=== PATIENT | male | born 1965 | race Caucasian/White ===

== ENCOUNTER 2023-06-11 11:50 | Outpatient (CLI) | payer SELFPAY | END 2023-06-11 23:59 | disposition EMS.NT | LOC: EMS 11:50 | DX: R50.9 Fever, unspecified (principal); R00.0 Tachycardia, unspecified ==

== ENCOUNTER 2023-06-11 20:57 | Outpatient (CLI) | payer SELFPAY | END 2023-06-11 23:59 | disposition critical access hospital (66) | LOC: EMS 20:57 | DX: R45.851 Suicidal ideations (principal); R00.0 Tachycardia, unspecified | CPT/HCPCS: A0425; A0427 ==

== ENCOUNTER 2023-06-11 21:28 | Emergency (ER) | payer SELFPAY ==
--- NOTE | 2023-06-11 22:09 | ED Physician Documentation ---
PD HPI MHE - Stated complaint Stated Complaint: SI - Chief complaint Chief Complaint: MHE - History obtained from History obtained from: Patient - Additional information Additional information: HPI from patient. CADEN and HPI is also provided by EMS. Patient tells me that his of 20 years recently filed for divorce. He says this was about 3 weeks ago and he has not seen nor heard from her and knows 3 weeks. The patient resides in [place], but has been staying at the [facility] for the past several days. Per EMS report, someone had called for a welfare check for this patient and the police were reportedly at the patient's hotel room twice today. Is unclear what transpired on the first visit, but apparently/reportedly, on mamie's visit it was noted that the patient had a firearm in the hotel room with him in the open. The patient admitted to having some suicidal thoughts and thus EMS was contacted and to bring patient to the emergency department for MHE. The patient does admit to me that he was feeling depressed and having vague suicidal thoughts earlier this evening. His HPI is slightly scattered and thus I cannot ascertain whether or not he still is feeling suicidal, but he seems to be indicating that he is no longer feeling suicidal or having suicidal thoughts. Review of Systems Cardiac: reports: Reviewed and negative Respiratory: reports: Reviewed and negative GI: reports: Abdominal Swelling (by observation (patient says he does not feel his abdomen is distended)), Nausea. denies: Abdominal Pain, Vomiting Neurologic: denies: Generalized weakness, Focal weakness, Numbness, Headache Psychiatric: reports: Depressed, Suicidal. denies: Homicidal, Delusions PD PAST MEDICAL HISTORY - Past Medical History Past Medical History: No Other Past Medical History: skin cancer - Present Medications Home Medications: Ambulatory Orders Medication Instructions Recorded Confirmed No Known Home Medications 06/11/23 06/11/23 - Allergies Allergies/Adverse Reactions: Allergies Allergy/AdvReac Type Severity Reaction Status Date / Time No Known Drug Allergies Allergy Verified 06/11/23 21:34 - Social History Does the pt smoke?: No Smoking Status: Never smoker Does the pt drink ETOH?: Yes ETOH Use: Beer, Liquor Does the pt have substance abuse?: Yes Substance Use and Type: Marijuana PD ED PE NORMAL - Vitals Vital signs reviewed: Yes - General General: No acute distress, Well developed/nourished, Other (some difficulty (persistent throughout HPI/ROS) with memory, word-finding, mental focus (sometimes trails off mid-sentence)) - HEENT HEENT: PERRL, EOMI, Other (no icterus) - Cardiac Cardiac: No murmur - Respiratory Respiratory: No respiratory distress - Abdomen Abdomen: Soft - Derm Derm: Other (pale) PD ED PE EXPANDED - Cardiac Cardiac: Tachy, Regular Rhythm - Abdomen Abdomen: Distended, Other (tense but nontender ascites) - Rectal Rectal: Heme Occult Neg - QC+, Normal Tone - Derm Derm: Pale - Extremities Extremities: Pedal edema bilateral (2+ pitting), Other (right elbow abrasions and echymosis but FROM and nontender) Results - Vitals Vitals: Vital Signs - 24 hr 06/11/23 06/12/23 06/12/23 21:30 04:40 05:00 Temperature 36.5 C Heart Rate 126 H 119 H 126 H Respiratory 16 16 26 H Rate Blood Pressure 132/69 H 125/68 155/90 H O2 Saturation 97 94 95 06/12/23 06/12/23 06/12/23 05:30 06:01 06:04 Temperature Heart Rate 120 H 134 H 60 Respiratory 25 H 23 Rate Blood Pressure 111/55 L 164/109 H O2 Saturation Oxygen O2 Source Room air - Labs Labs: Microbiology 06/12/23 01:40 Occult Blood - Final Stool Laboratory Tests 06/11/23 06/11/23 06/11/23 23:11 23:14 23:14 WBC 6.1 RBC 2.66 L Hgb 5.6 L* Hct 20.2 L MCV 75.9 L MCH 21.1 L MCHC 27.7 L RDW 19.0 H Plt Count 312 MPV 10.5 Neut # (Auto) 4.2 Lymph # (Auto) 0.7 L [place] # (Auto) 1.1 H Eos # (Auto) 0.0 Baso # (Auto) 0.1 Absolute Nucleated RBC 0.00 Nucleated RBC % 0.0 Sodium 126 L Potassium 4.3 Chloride 91 L Carbon Dioxide 17 L Anion Gap 18.0 H BUN 11 Creatinine 1.1 Estimated GFR (MDRD) 69 L Glucose 105 H Calcium 8.5 Magnesium 1.8 Total Bilirubin 2.2 H AST 139 H ALT 45 Alkaline Phosphatase 126 H Ammonia Total Creatine Kinase 1959 H* Total Protein 6.4 Albumin 3.2 Globulin 3.2 Albumin/Globulin Ratio 1.0 Lipase 37 TSH 3.11 Urine Color YELLOW Urine Clarity CLEAR Urine pH 5.5 Ur Specific [place] >=1.030 H Urine Protein TRACE Urine Glucose (UA) NEGATIVE Urine Ketones NEGATIVE Urine Occult Blood NEGATIVE Urine Nitrite NEGATIVE Urine Bilirubin NEGATIVE Urine Urobilinogen 0.2 (NORMAL) Ur Leukocyte Esterase NEGATIVE Ur Microscopic Review NOT INDICATED Urine Culture Comments NOT INDICATED Salicylates < 1.5 Urine Opiates Screen POSITIVE H Ur Buprenorphine Scrn NEGATIVE Ur Oxycodone Screen NEGATIVE Urine Methadone Screen NEGATIVE Acetaminophen 10.8 Ur Barbiturates Screen NEGATIVE Ur Tricyclics Screen POSITIVE H Ur Phencyclidine Scrn NEGATIVE Ur Amphetamine Screen NEGATIVE U Methamphetamines Scrn NEGATIVE U Benzodiazepines Scrn POSITIVE H Urine Cocaine Screen NEGATIVE U Cannabinoids Screen NEGATIVE Ur Drug Screen Comment CUTOFF CONC BELOW: Ethyl Alcohol 61.9 Blood Type Blood Type Recheck Antibody Screen Crossmatch IS Only 06/11/23 06/11/23 06/12/23 23:14 23:14 05:57 WBC RBC Hgb Hct MCV MCH MCHC RDW Plt Count MPV Neut # (Auto) Lymph # (Auto) [place] # (Auto) Eos # (Auto) Baso # (Auto) Absolute Nucleated RBC Nucleated RBC % Sodium Potassium Chloride Carbon Dioxide Anion Gap BUN Creatinine Estimated GFR (MDRD) Glucose Calcium Magnesium Total Bilirubin AST ALT Alkaline Phosphatase Ammonia 82.9 H* Total Creatine Kinase Total Protein Albumin Globulin Albumin/Globulin Ratio Lipase TSH Urine Color Urine Clarity Urine pH Ur Specific [place] Urine Protein Urine Glucose (UA) Urine Ketones Urine Occult Blood Urine Nitrite Urine Bilirubin Urine Urobilinogen Ur Leukocyte Esterase Ur Microscopic Review Urine Culture Comments Salicylates Urine Opiates Screen Ur Buprenorphine Scrn Ur Oxycodone Screen Urine Methadone Screen Acetaminophen Ur Barbiturates Screen Ur Tricyclics Screen Ur Phencyclidine Scrn Ur Amphetamine Screen U Methamphetamines Scrn U Benzodiazepines Scrn Urine Cocaine Screen U Cannabinoids Screen Ur Drug Screen Comment Ethyl Alcohol Blood Type Cancelled Blood Type Recheck O NEGATIVE Antibody Screen Cancelled Crossmatch IS Only See Detail PD Medical Decision Making - ED course Complexity details: reviewed results, re-evaluated patient, considered differential, d/w patient ED course: Patient presents for a chief concern of suicidal thoughts related to his recently filing for a divorce after 20 years of marriage (per patient). He was found earlier this evening in a hotel room on [facility] (patient lives in [place]) with a firearm in plain view, admitting to having thoughts of self-harm and agreeable to ED evaluation for SI. The patient has a grossly distended abdomen which he seems to be oblivious to. I ask him if he has any liver problems, he tells me he was recently told he has "light cirrhosis". It is unclear who told him this and it does not sound like he had any follow-up. In fact, per his description, I suspect that he was told this by either another emergency department practitioner or else in urgent care center or similar outpatient clinic, rather than with a primary care provider. In further discussion, it sounds like he has not seen a primary care provider for at least a few years. Is important to note that the patient's vague answers and difficulty with coming up with words and descriptors would be consistent with his hyperammonemia (ammonia level 82), likely encephalopathic. For example, when I ask him if he is an alcoholic, he answers in the affirmative. When I then ask for him to specify how much he drinks on an average day, he gets into describing how he and his would have wine whenever they cook. My attempts to refocus the patient in regarding quantifying (number of glasses per day/night) are met with a return to him wanting to talk about how he would drink whenever his would cook which would be most every night by his description. When I ask when he last drank, he says "around midnight". CBC is most notable for a striking anemia, hemoglobin 5.6, with low indices except for high RDW. Platelets and white blood cell count are both normal. On basic metabolic profile, he has hyponatremia (126). On liver function test, bilirubin is mildly elevated (2.2), mild elevation to AST (139), normal ALT. He also has normal protein, lipase, TSH. Urine drug screen is positive for opiates, tricyclic's, benzodiazepines. EMS reported that the the patient had two empty prescription bottles in his hotel room. One was for diazepam but apparently this was a an prescription and was only for 2 tablets. The other prescription was for hydrocodone 6 tablets; patient says he did take the Vicodin/hydrocodone, but that this was 2 or 3 days ago. Serum alcohol level 0.062. I performed a bedside ultrasound and there is marked ascites, although he is nontender with palpation. Thus, in short, this is a patient with likely alcoholic cirrhosis with ascites , the latter readily evident on bedside US . There are very real concerns for this patient's immediate mental health. While I was initially contemplating obtaining a telepsychiatric consult, the exam and results of the blood tests preclude medical clearance at this time. I believe this patient would be best treated in the inpatient setting from a medical standpoint before consideration of his mental health issues. Most pressing is his severe anemia, along with what seems to be, at this point, cirrhosis with ascites that has not been specifically worked-up, diagnosed nor treated. We are contacting [facility] to try to find a bed at an appropriate facility that has a higher level of care to include appropriate specialist such as GI/hepatology. Note that there are no med/surgical beds available at this time at [facility]. Multiple hospitals were contacted including [facility], [facility], [facility] in [place]. All of these hospitals and medical systems were either at capacity and not accepting patients to waitlist, or else were at capacity but place patient on wait list. I then discussed this case with the practitioner on duty for the [facility] system and she will work on finding a bed at an appropriate facility. Later in the patient's ED stay, on the consent of the patient for transfusion of packed red blood cells to address his severe anemia. We reviewed the risks and benefits and he had no further questions, signed the consent form. I also ordered 1 L normal saline IV with 100 mg of thiamine. Unfortunately, multivitamins are out of stock at [facility]. Furthermore, IV folate unavailable and thus I ordered 1 mg folate p.o. At approximately 05:50, I was asked to reevaluate the patient; phlebotomy is at bedside and they note the patient is very confused, tremulous. I immediately reevaluate the patient and indeed the patient is markedly more confused than he had been throughout ED stay to this point. He also is noticeably tremulous with some muscular fasciculations that vary in location. I am not seeing evidence of seizure activity on my evaluation, although the employee relation manager says she thinks she might have seen the patient have a seizure. It is certainly possible he has seized and now in post-ictal phase. I ordered 1 mg IV lorazepam for possible al cohol withdrawal, possible seizure. Before the patient received the lorazepam and before he received any blood products, I was then called to reevaluate the patient at 0604; the ED RN that was about to administer the lorazepam (but had not yet done so) notes that the patient is now unresponsive with rapid decrease in heart rate from 120s sinus tachycardia to 60s. I responded to this call for reevaluation within no more than 15 seconds, and I find patient is unresponsive and apneic, narrow complex organized and regular rhythm on monitor 20s-30s BPM but no pulses (I checked right carotid artery while ED RN checked femoral pulses). Thus, CPR started for PEA. Over the course of the ensuing 16-minute long code, several rounds of CPR are undertaken, he is given 1 mg IV epinephrine x 2 doses. At no time did patient regain palpable pulses nor perfusing rhythm (there was questionable palpable pulse by ED RN one time, femoral pulse; however, I then checked the same area and not only do I not feel a palpable pulse, but he went from PEA to asystole on the desk monitor at that time). His cardiac rhythm, based on lack of pulses and desk monitor, was PEA deteriorating to asystole with agonal beats. The patient was coded from 0:605 to 06:21. During the last two pulse checks, I was able to obtain bedside US cardiac images which do not have evidence of pericardial effusion but show no cardiac movement/activity. I announced to the resuscitative team that I plan to call the code and pronounced at 06:21 unless there were other thoughts, questions, concerns, or suggestions. The resu scitative team verbalizes that they agree with calling the code at 06:21. Pupils are fixed and dilated, there is no response to painful stimuli, no palpable pulses, no spontaneous respirations, no heart tones on cardiac auscultation.I pronounced patient at 06:21 Departure - Departure Disposition: 20 Clinical Impression: Suicidal ideation, Hyperammonemia Anemia Qualifiers: Anemia type: unspecified type Qualified Code(s): D64.9 - Anemia, unspecified Cirrhosis of liver with ascites Qualifiers: Hepatic cirrhosis type: alcoholic cirrhosis Qualified Code(s): K70.31 - Alcoholic cirrhosis of liver with ascites Condition: Stable Forms: PCP List
[2023-06-11 23:27] LABS: BILIRUBIN,URINE NEGATIVE (NEGATIVE); GLUCOSE, URINE (UA) NEGATIVE (NEGATIVE); KETONES,URINE (UA) NEGATIVE (NEGATIVE); LEUKOCYTE ESTERASE, URINE NEGATIVE (NEGATIVE); NITRITE,URINE NEGATIVE (NEGATIVE); OCCULT BLOOD,URINE NEGATIVE (NEGATIVE); PH,URINE 5.5 PH (5.0-7.5); PROTEIN,URINE TRACE mg/dL (NEGATIVE); UROBILINOGEN,URINE 0.2 (NORMAL) E.U./dL (NORMAL)
[2023-06-11 23:42] LABS: CLARITY,URINE CLEAR (CLEAR)
[2023-06-11 23:43] LABS: AMPHETAMINE SCREEN,URINE NEGATIVE (NEGATIVE); BENZODIAZEPINES SCREEN, URINE POSITIVE (NEGATIVE); COCAINE SCREEN URINE NEGATIVE (NEGATIVE); METHADONE SCREEN, URINE NEGATIVE (NEGATIVE); METHAMPHETAMINES SCREEN, URINE NEGATIVE (NEGATIVE); OPIATE SCREEN, URINE POSITIVE (NEGATIVE); THC CANNABINOID SCREEN, URINE NEGATIVE (NEGATIVE); TRICYCLIC ANTIDEPRESSANT,URINE POSITIVE (NEGATIVE)
[2023-06-11 23:44] LABS: BASOPHILS # (AUTO) 0.1 10^3/uL (0.0-0.1); BASOPHILS % (AUTO) 0.8 %; HCT - HEMATOCRIT 20.2 % (42.0-52.0); LYMPHOCYTES # (AUTO) 0.7 10^3/uL (1.5-3.5); LYMPHOCYTES % (AUTO) 11.7 %; MEAN CORPUSCULAR HEMOGLOBIN 21.1 pg (27.0-31.0); MEAN CORPUSCULAR HGB CONC 27.7 g/dL (32.0-36.0); MEAN CORPUSCULAR VOLUME 75.9 fL (80.0-94.0); MEAN PLATELET VOLUME 10.5 fL (7.4-11.4); MONOCYTES # (AUTO) 1.1 10^3/uL (0.0-1.0); MONOCYTES % (AUTO) 17.7 %; NEUTROPHILS # (AUTO) 4.2 10^3/uL (1.5-6.6); NEUTROPHILS % (AUTO) 69.6 %; PLT - PLATELET COUNT 312 10^3/uL (130-450); RED BLOOD COUNT 2.66 10^6/uL (4.70-6.10); WHITE BLOOD COUNT 6.1 x10^3/uL (4.8-10.8)
[2023-06-11 23:45] LABS: BARBITURATE SCREEN,UR NEGATIVE (NEGATIVE); BUPRENORPHINE SCREEN, URINE NEGATIVE (NEGATIVE); OXYCODONE SCREEN, URINE NEGATIVE (NEGATIVE)
[2023-06-11 23:50] LABS: HGB - HEMOGLOBIN 5.6 g/dL (14.0-18.0)
[2023-06-11 23:54] LABS: ACETAMINOPHEN 10.8 ug/mL; ETOH - ETHANOL 61.9 mg/dL; LIPASE 37 U/L (11-82); MAGNESIUM 1.8 mg/dL (1.7-2.3)
[2023-06-12 00:01] LABS: ALBUMIN 3.2 g/dL (3.2-5.5); ALKALINE PHOSPHATASE 126 IU/L (42-121); ALT ALANINE AMINOTRANSFERASE 45 IU/L (10-60); AST ASPARTATE AMINOTRANSFERASE 139 IU/L (10-42); BILIRUBIN,TOTAL 2.2 mg/dL (0.2-1.0); BUN - BLOOD UREA NITROGEN 11 mg/dL (6-20); CALCIUM 8.5 mg/dL (8.5-10.3); CARBON DIOXIDE - CO2 17 mmol/L (21-32); CHLORIDE 91 mmol/L (101-111); CK- CREATINE KINASE 1959 IU/L (30-223); CREATININE 1.1 mg/dL (0.6-1.3); GFR - MDRD 69 (>89); GLUCOSE 105 mg/dL (74-104); POTASSIUM 4.3 mmol/L (3.5-4.5); SODIUM 126 mmol/L (135-145); TOTAL PROTEIN 6.4 g/dL (6.4-8.9)
[2023-06-12 00:02] LABS: SALICYLATE < 1.5 mg/dL
[2023-06-12 00:07] LABS: THYROID STIMULATING HORMONE 3.11 uIU/mL (0.34-5.60)
[2023-06-12] MEDS ORDERED: MAGNESIUM SULFATE 1 GM/2 ML VIAL ONE (03:34)
[2023-06-12] MEDS ORDERED: THIAMINE 100 MG/1 ML 2 ML MDV ONE (03:34)
[2023-06-12] MEDS: FOLIC ACID INJ 1 MG, THIAMINE INJ 100 MG, MAGNESIUM SULFATE 2 GM in SODIUM CHLORIDE 0.9... IV STA (03:42)
[2023-06-12] MEDS: THIAMINE IV STA (03:46)
[2023-06-12] MEDS: SODIUM CHLORIDE 0.9% IV STA (03:46)
[2023-06-12] MEDS: MAGNESIUM SULFATE IV STA (03:46)
[2023-06-12] MEDS: FOLIC ACID 1 MG TABLET PO STA (03:49)
[2023-06-12] MEDS: THIAMINE INJ 100 MG, FOLIC ACID INJ 1 MG in SODIUM CHLORIDE 0.9% 1,000 ML IV STA (03:49)
[2023-06-12] MEDS ORDERED: LORazepam 2 MG/ML VIAL ONE (06:02)
[2023-06-12] MEDS: LORazepam 2 MG/ML VIAL IVP STA (06:02)
[2023-06-12 06:33] VITALS: BP 164/109; O2SAT 95
[2023-06-12] MEDS: EPINEPHrine 1 MG/ML AMP IVP STA ×2 (07:18→07:19)
[2023-06-12] MEDS: LACTULOSE 10 GM /15 ML UDC PO STA (07:20)
== END 2023-06-12 06:21 | disposition expired ==
LOC: ED 21:28
DX: R45.851 Suicidal ideations (principal); E72.20 Disorder of urea cycle metabolism, unspecified; D64.9 Anemia, unspecified; K70.31 Alcoholic cirrhosis of liver with ascites; E87.1 Hypo-osmolality and hyponatremia; R25.3 Fasciculation
CPT/HCPCS: 36415; 80053; 80143; 80179; 80306; 81003; 82077; 82140; 82272; 82550; 83690; 83735; 84443; 85025; 92950; 96365; 96366; 96375; 99285; A9270; J3411; 81001; 86850; 86900; 86901; 86920; 87086